=== PATIENT | male | born 1970 | race Caucasian/White ===

== ENCOUNTER → 2017-07-31 | Outpatient (CLI) | payer BC | LOC: PT 07:54 → CARDREHAB 16:00 | DX: R07.9 Chest pain, unspecified (principal); I10 Essential (primary) hypertension ==

== ENCOUNTER 2021-04-03 09:54 | Outpatient (RCR) | payer BC | END 2021-07-02 | disposition home or self-care (01) | LOC: PT | DX: M54.41 Lumbago with sciatica, right side (principal) ==

== ENCOUNTER → 2021-05-08 | Day surgery (SDC) | payer BC | END | disposition home or self-care (01) | LOC: MSO 07:15 | DX: Z12.11 Encounter for screening for malignant neoplasm of colon (principal); D12.3 Benign neoplasm of transverse colon; K64.4 Residual hemorrhoidal skin tags; E66.9 Obesity, unspecified; I10 Essential (primary) hypertension; M25.512 Pain in left shoulder; Z79.891 Long term (current) use of opiate analgesic; Z79.899 Other long term (current) drug therapy | CPT/HCPCS: 00811; J2704; J7120 ==

== ENCOUNTER 2022-09-03 16:03 | Emergency (ER) | payer BC ==
[2022-09-03 16:42] LABS: BASO # 0.02 K/mm3 (0.02-0.10); HEMATOCRIT 46.6 % (42.0-52.0); HEMOGLOBIN 15.3 g/dL (13.5-18.0); MEAN CELL VOLUME 91 fl (78-100); MEAN CORPUSCULAR HEMOGLOBIN 30 pg (27-31); MEAN CORPUSCULAR HGB CONC 33 g/dL (33-37); MEAN PLATELET VOLUME 9.9 fl (7.4-10.4); MONO # 1.08 K/mm3 (0.20-0.80); NEU # 7.78 K/mm3 (1.40-6.50); PLATELET COUNT 230 K/mm3 (130-400); RED CELL DISTRIBUTION WIDTH 12.5 % (11.5-14.5); WHITE BLOOD COUNT 9.7 K/mm3 (4.8-10.8)
[2022-09-03 16:51] LABS: ALBUMIN 4.4 g/dL (3.5-5.0)
[2022-09-03 16:52] LABS: POTASSIUM 4.4 mmol/L (3.5-5.1)
[2022-09-03 16:53] LABS: CALCIUM 9.5 mg/dL (8.3-10.5)
[2022-09-03 16:54] LABS: TOTAL PROTEIN 7.8 g/dL (6.4-8.3)
[2022-09-03 16:56] LABS: TOTAL BILIRUBIN 0.6 mg/dL (0.2-1.2)
[2022-09-03] MEDS ORDERED: ZESTRIL5 M1 PO (18:46)
[2022-09-03] MEDS ORDERED: APRESOLINE 10MG10 MG (18:47)
[2022-09-03] MEDS ORDERED: NORVASC 5MG5 MG/TAB (18:47)
[2022-09-03] MEDS ORDERED: ROBAXIN100 MG/1 M (18:48)
[2022-09-03] MEDS ORDERED: HYDROCODONE BIT10 MG (18:49)
[2022-09-03 20:52] LABS: URINE APPEARANCE CLEAR; URINE BILIRUBIN NEGATIVE (NEGATIVE); URINE BLOOD 50 ery/uL (NEGATIVE); URINE COLOR YELLOW; URINE GLUCOSE NEGATIVE (NEGATIVE); URINE KETONE 2+ (NEGATIVE); URINE LEUKOCYTE ESTERASE NEGATIVE (NEGATIVE); URINE NITRATE NEGATIVE (NEGATIVE); URINE PROTEIN(semi-quant) 1+ (NEGATIVE); URINE UROBILINOGEN NORMAL (NORMAL)
[2022-09-03 20:53] LABS: URINE MUCUS PRESENT (NOT PRESENT)
[2022-09-03 23:46] VITALS: BP 139/78
== END 2022-09-03 23:47 | disposition home or self-care (01) ==
LOC: ED 16:03
PROVIDERS: Nurse Practitioner
DX: J10.1 Influenza due to other identified influenza virus with other respiratory manifestations (principal); I16.0 Hypertensive urgency; Z28.310 Unvaccinated for COVID-19; Z20.822 Contact with and (suspected) exposure to COVID-19
CPT/HCPCS: J2550; J3010